=== PATIENT | male | born 1960 | race Caucasian/White ===

== ENCOUNTER 2017-07-20 00:29 | Emergency (ER) | payer OTHER ==
[~2017-07-20] VITALS: Ht 182.9 cm; Wt 120.1 kg
[~2017-07-20 00:29] MED LIST: ALBU6.7H INH; GUAI100S6 PO; ZITH250T PO
[2017-07-20 00:32] VITALS: BP 239/121; PULSE 83; RESP 18; TEMP 98.7; O2SAT 99
[2017-07-20] MEDS ORDERED: MULTCHW27 PO (00:46)
[2017-07-20] MEDS ORDERED: VITA200C3 PO ×2 (00:46)
[2017-07-20] MEDS ORDERED: NORC5TAB PO (02:21)
--- NOTE | 2017-07-20 02:21 | PD ---
HPI Chief Complaint: Cold / Flu Symptoms Time Seen by Provider: 01:11 Travel History International Travel<30 days: No Contact w/Intl Traveler<30days: No Traveled to known affect area: No History of Present Illness HPI Patient is a 57-year-old male who comes in due to concerns for the flu. 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 He says he has been feeling hot and cold. He says he has a scratchy voice. He has some congestion and cough. His was worried that he would develop bronchitis, so encouraged him to come in. He has not had fever or chills. He did get a flu shot this year. He has not taken anything for symptoms. Severity is mild. PFSH Past Medical History Diminished Hearing: No Hypertension: Yes Respiratory: Yes (FREQUENT BRONCHITIS) Immunizations Current: Yes Tetanus Vaccination: > 5 Years Influenza Vaccination: No Past Surgical History Oral Surgery: Yes (TOOTH EXTRACTION) Other Surgery: Yes (PLASTIC SURGERY TO FACE S/P SURF INJURY: AGE 18) Social History Alcohol Use: Yes (OCC) Tobacco Use: No Substance Use: No Allergies-Medications (Allergen,Severity, Reaction): Coded Allergies: No Known Allergies (Verified Adverse Reaction, Unknown, 07/20/17) Reported Meds & Prescriptions Reported Meds & Active Scripts Active Reported Multivitamin Gummies Adul (Multiple Vitamins W/ Minerals) 200 Mcg Chw 1 Chew PO BID Vitamin E 200 Unit Cap 400 Units PO BID Review of Systems General / Constitutional: Positive: Chills HENT: Positive: Congestion, No: Headaches, Lightheadedness Cardiovascular: No: Chest Pain or Discomfort Respiratory: Positive: Cough, No: Shortness of Breath Gastrointestinal: No: Nausea, Vomiting Musculoskeletal: No: Myalgias, Edema Skin: No Rash, No Change in Pigmentation Neurologic: No: Weakness, Dizziness Physical Exam Narrative GENERAL: Awake and alert, in no acute distress. SKIN: Focused skin assessment warm/dry. No wounds or signs of infection. HEAD: Atraumatic. Normocephalic. EYES: Pupils equal and round. No scleral icterus. ENT: Mucous membranes pink and moist. No tonsillar swelling or exudates. CARDIOVASCULAR: Regular rate and rhythm. No murmur appreciated. RESPIRATORY: No accessory muscle use. Clear to auscultation. Breath sounds equal bilaterally. GASTROINTESTINAL: Abdomen soft, non-tender, nondistended. MUSCULOSKELETAL: No obvious deformities. No clubbing. No cyanosis. No edema. NEUROLOGICAL: Awake and alert. No obvious cranial nerve deficits. Motor grossly within normal limits. Normal speech. Data Data Last Documented VS Vital Signs Date Time Temp Pulse Resp B/P (MAP) Pulse Ox O2 Delivery O2 Flow Rate FiO2 07/20/17 00:47 Room Air 07/20/17 00:32 98.7 83 18 239/121 (160) 99 Orders Orders Influenzae A/B Antigen (07/20/17 01:27) Ed Discharge Order (07/20/17 02:23) MDM Medical Decision Making Medical Screen Exam Complete: Yes Emergency Medical Condition: Yes Medical Record Reviewed: Yes Differential Diagnosis Influenza versus URI versus pharyngitis Narrative Course Patient is a 57-year-old male who comes in due to concerns for the flu. Exam shows no acute abnormalities. Flu swab sent is negative. Patient advised to take Tylenol or ibuprofen as needed for pain or fever. Advised to drink plenty of fluids. Advised follow-up with his doctor. Advised to return to the ED as needed for any worsening symptoms. Diagnosis Primary Impression: Viral illness Patient Instructions: General Instructions, Viral Syndrome (ED) Additional Instructions: Follow up with a primary care doctor. Take Tylenol or Ibuprofen as needed for pain or fever. Return to the ED as needed for any worsening symptoms. Disposition: 01 DISCHARGE HOME Condition: Stable Ivana Rouse MD Jul 20, 2017 02:21
== END 2017-07-20 06:43 | disposition home or self-care (01) ==
LOC: PHED 00:29
DX: B34.9 Viral infection, unspecified (principal); I10 Essential (primary) hypertension
CPT/HCPCS: 87804; 99283